=== PATIENT | female | born 1985 | race Caucasian/White ===

== ENCOUNTER 2025-06-10 15:30 | Emergency (ER) | payer OTHER ==
[2025-06-10 17:15] LABS: #Basophils 0.05 10x3/uL (0.0-0.2); #Eosinophils 0.10 10x3/uL (0.0-0.5); #Monocytes 0.51 10x3/uL (0.0-1.1); #Neutrophils 6.34 10x3/uL (1.5-8.4); %Basophils 0.6 % (0.0-2.0); %Eosinophils 1.1 % (0.0-6.0); %Lymphocytes 20.0 % (18.0-47.0); %Monocytes 5.8 % (0.0-10.0); %Neutrophils 72.3 % (40.0-75.0); Hematocrit 40.2 % (34.9-44.5); Hemoglobin 13.3 g/dL (12.0-15.5); Mean Corpuscular Hemoglobin 29.6 pg (27.0-33.0); Mean Corpuscular Volume 89.3 fL (81.6-98.3); Platelet Count 221 10x3/uL (150-450); Red Blood Cell (RBC) Count 4.50 10x6/uL (3.90-5.03); White Blood Cell (WBC) Count 8.77 10x3/uL (3.5-10.5)
[2025-06-10 17:29] LABS: ALT (SGPT) 13 U/L (Less than 34); AST (SGOT) 27 U/L (11-34); Albumin 4.3 g/dL (3.1-4.5); Alkaline Phosphatase 47 U/L (40-110); Anion Gap 12 mmol/L (10-20); BHCG - Serum Negative (NEGATIVE); BUN (Urea Nitrogen) 15 mg/dL (7.0-18.7); Bilirubin, Total 0.4 mg/dL (0.3-1.2); CK (CPK) 354 U/L (29-168); Calc. Creatinine Clearance 0 mL/min (70-130); Calcium 9.5 mg/dL (7.8-10.44); Carbon Dioxide 25 mmol/L (22-29); Chloride 107 mmol/L (98-107); Globulin 2.7 g/dL (2.4-3.5); Glucose 96 mg/dL (70-105); Potassium 4.1 mmol/L (3.5-5.1); Pregs Control Background? CLEAR/WHITE (CLR/WHITE); Pregs Control Bar Appear? YES (CONTROL BAR); Sodium 140 mmol/L (136-145)
[2025-06-10 17:34] LABS: Troponin I Less than 0.010 ng/mL (< 0.028)
== END 2025-06-10 18:05 | disposition home or self-care (01) ==
LOC: CSHERS 15:30
DX: R07.81 Pleurodynia (principal)
CPT/HCPCS: 71045; 80053; 82550; 84484; 84703; 85025; 85379; 93005